=== PATIENT | female | born 1955 | race Two or more races ===

== ENCOUNTER → 2017-12-18 | Outpatient (CLI) | payer OTHER ==
[~2017-12-18] VITALS: Ht 152.4 cm; Wt 77.1 kg
[~2017-12-18] MED LIST: CALTRATE 600 W-1 TAB PO; CYTOMEL25 MCG PO; FOSAMAX70 MG; FOSAMAX70 MG PO; LIPITOR20 MG; LIPITOR20 MG PO; MAXITROL EYE DRO5 ML OP; OMEGA 3 FISH OI1 CAP PO; OSCAL D 5001 TAB PO; PAIN & FEVER325 MG PO; SYNTHROID112 MCG
== END | disposition home or self-care (01) ==
LOC: PPHC 15:52
DX: M25.561 Pain in right knee (principal); Z01.89 Encounter for other specified special examinations

== ENCOUNTER 2017-12-19 07:49 | Outpatient (CLI) | payer OTHER | END 2017-12-19 07:58 | disposition home or self-care (01) | LOC: RAD 07:49 | DX: M25.561 Pain in right knee (principal) ==

== ENCOUNTER → 2017-12-19 | Emergency (ER) | payer OTHER ==
[~2017-12-19] VITALS: Ht 157.5 cm; Wt 74.8 kg
== END | disposition home or self-care (01) ==
LOC: ER 08:49
DX: M79.661 Pain in right lower leg (principal)

== ENCOUNTER → 2017-12-25 | Outpatient (CLI) | payer OTHER | END | disposition home or self-care (01) | LOC: PPHC 16:07 | DX: Z01.89 Encounter for other specified special examinations (principal); Z00.8 Encounter for other general examination ==

== ENCOUNTER 2018-01-28 14:27 | Outpatient (CLI) | payer OTHER | END 2018-01-28 15:00 | disposition home or self-care (01) | LOC: MRI 14:27 | DX: M25.462 Effusion, left knee (principal) | CPT/HCPCS: 73721 ==

== ENCOUNTER 2018-02-25 11:25 | Outpatient (CLI) | payer OTHER | END 2018-02-25 11:26 | disposition home or self-care (01) | LOC: LAB 11:25 | DX: C73 Malignant neoplasm of thyroid gland (principal); E89.0 Postprocedural hypothyroidism ==

== ENCOUNTER 2018-03-31 08:09 | Outpatient (CLI) | payer OTHER | END 2018-03-31 10:59 | disposition home or self-care (01) | LOC: LAB 08:09 | DX: C73 Malignant neoplasm of thyroid gland (principal); E89.0 Postprocedural hypothyroidism ==

== ENCOUNTER 2018-03-31 08:13 | Outpatient (CLI) | payer OTHER | END 2018-03-31 08:33 | disposition home or self-care (01) | LOC: SONOGRAMA 08:13 | DX: C73 Malignant neoplasm of thyroid gland (principal) ==

== ENCOUNTER → 2018-05-22 | Outpatient (CLI) | payer OTHER | END | disposition home or self-care (01) | LOC: LAB 07:32 | DX: E78.2 Mixed hyperlipidemia (principal); I10 Essential (primary) hypertension; E03.8 Other specified hypothyroidism; E56.8 Deficiency of other vitamins ==

== ENCOUNTER 2018-07-03 07:36 | Outpatient (CLI) | payer OTHER ==
[~2018-07-03 07:36] MED LIST changes: +DICLOFENAC POTA50 MG PO
== END 2018-07-03 10:45 | disposition home or self-care (01) ==
LOC: MAMO-SONO 07:36
DX: Z12.31 Encounter for screening mammogram for malignant neoplasm of breast (principal)

== ENCOUNTER → 2018-07-06 | Outpatient (CLI) | payer OTHER | END | disposition home or self-care (01) | LOC: NUCLEAR 14:30 | DX: M81.0 Age-related osteoporosis without current pathological fracture (principal); Z13.820 Encounter for screening for osteoporosis; N95.1 Menopausal and female climacteric states ==

== ENCOUNTER 2018-07-10 11:13 | Outpatient (CLI) | payer OTHER | END 2018-07-10 11:20 | disposition home or self-care (01) | LOC: LAB 11:13 | DX: D64.89 Other specified anemias (principal); E11.9 Type 2 diabetes mellitus without complications; E78.2 Mixed hyperlipidemia; I10 Essential (primary) hypertension; E03.8 Other specified hypothyroidism ==